=== PATIENT | female | born 1990 | race Caucasian/White ===

== ENCOUNTER 2021-02-12 17:41 | Emergency (ER) | payer MEDICAID ==
[~2021-02-12] VITALS: Ht 160 cm; Wt 75.0 kg
[2021-02-12] MEDS ORDERED: diphenhydrAMINE 50 mg/ml inj IM ONE ×2 (17:45→19:50)
[2021-02-12] MEDS ORDERED: haloperidol lactate 5mg/ml inj IM ONE ×2 (17:45→19:50)
[2021-02-12] MEDS ORDERED: LORazepam 2 mg/ml vial IM ONE ×2 (17:45→19:50)
[2021-02-12] MEDS ORDERED: normal saline 1000ML IV soln IVB ONE (17:50)
[2021-02-12 18:26] LABS: BASOPHILS # (AUTO) 0.1 X10'3 (0-0.2); BASOPHILS % (AUTO) 0.5 % (0-1); EOSINOPHILS # (AUTO) 0.1 X10'3 (0-0.9); EOSINOPHILS % (AUTO) 0.8 % (0-6); HEMATOCRIT 36.1 % (35.0-45.0); HEMOGLOBIN 12.5 g/dl (12.0-16.0); LYMPHOCYTES # (AUTO) 2.6 X10'3 (1.1-4.8); LYMPHOCYTES % (AUTO) 23.1 % (21-51); MEAN CORPUSCULAR HEMOGLOBIN 30.6 PG (27.0-31.0); MEAN CORPUSCULAR HGB CONC 34.5 g/dL (33.0-36.5); MEAN CORPUSCULAR VOLUME 88.8 FL (78-98); MEAN PLATELET VOLUME 7.6 FL (7.4-10.4); MONOCYTES # (AUTO) 1.4 X10'3 (0-0.9); MONOCYTES % (AUTO) 12.4 % (2-12); NEUTROPHILS # (AUTO) 7.1 X10'3 (1.8-7.7); NEUTROPHILS % (AUTO) 63.2 % (42-75); PLATELET COUNT 305 X10'3 (140-440); RED BLOOD COUNT 4.07 X10'6 (4.20-5.60); RED CELL DISTRIBUTION WIDTH 13.8 % (11.5-14.5); WHITE BLOOD COUNT 11.2 X10'3 (4.5-11.0)
--- NOTE | 2021-02-12 19:00 | NUR ---
Patient's wet socks changed out to hospital socks. Patient talking under her breath speaking to the space beside her stating "how would you like to cum to this fucking face". When asked if she takes any medication she stated "I don't take anything that is good for me". Continues to be evasive and uncooperative with any information.
--- NOTE | 2021-02-12 19:20 | NUR ---
Patient began yelling- pulled one of her hands loose, aggressive and tensing on her other restraints. Remains uncooperative. Wet pants changed into dry green scrubs with assistance from staff. ED provider made aware as patient has still been unable to go to CT.
[2021-02-12 19:41] LABS: URINE HCG NEGATIVE (NEG)
[2021-02-12 19:42] LABS: CLARITY,URINE CLEAR (Clear); COLOR,URINE YELLOW (Yellow); GLUCOSE, URINE NEGATIVE (Neg); KETONES,URINE NEGATIVE (Neg); LEUKOCYTE ESTERASE ,URINE NEGATIVE (Neg); NITRITES, URINE NEGATIVE (Neg); OCCULT BLOOD,URINE NEGATIVE (Neg); PH,URINE 5.5 (4.8-8.0); PROTEIN,URINE 100 mg/dl (Neg); UROBILINOGEN,URINE 0.2 E.U/dL (0.2-1.0)
[2021-02-12 19:46] LABS: UA COLLECTION TYPE STRAIGHT CATH
[2021-02-12 19:47] LABS: BACTERIA,URINE NONE SEEN /HPF (Neg); MUCUS STRANDS FEW /LPF (Neg); RBC,URINE 0-2 /HPF (0-2); SQUAMOUS EPITHELIAL CELL,UR FEW /LPF (FEW); WBC,URINE 0-4 /HPF (0-4)
[2021-02-12 19:54] LABS: ALANINE AMINOTRANSFERASE 42 U/L (12-78); ALBUMIN 3.9 G/DL (3.4-5.0); ALBUMIN/GLOBULIN RATIO 1.4 (1.1-1.5); ALKALINE PHOSPHATASE 68 IU/L (46-116); ANION GAP 13 (8-16); ASPARTATE AMINO TRANSFERASE 108 U/L (10-37); BILIRUBIN,TOTAL 0.6 MG/DL (0.1-1.0); BLOOD UREA NITROGEN 18 MG/DL (7-18); BUN/CREATININE RATIO 17.8 (6.6-38.0); CALCIUM 7.7 MG/DL (8.5-10.1); CHLORIDE 108 MMOL/L (99-107); CREATININE 1.01 MG/DL (0.40-0.90); GLUCOSE 85 MG/DL (70-104); POTASSIUM 3.9 MMOL/L (3.5-5.1); SODIUM 143 MMOL/L (135-145); TOTAL CARBON DIOXIDE 21.9 MMOL/L (24-32); TOTAL PROTEIN 6.7 G/DL (6.4-8.2); eGFR 64 ML/MIN
--- NOTE | 2021-02-12 20:10 | NUR ---
Patient escorted to CT with security. Patient at this time cooperative and calm. Warm blankets provided per request. Restraints removed for CT and patient tolerated well. Snacks provided and patient was able to feed herself.
[2021-02-12 20:15] LABS: URINE AMPHETAMINE SCREEN POSITIVE (Neg); URINE BARBITUATE SCREEN NEGATIVE (Neg); URINE BENZODIAZEPINES SCREEN NEGATIVE (Neg); URINE CANNABINOID SCREEN NEGATIVE (Neg); URINE COCAINE SCREEN NEGATIVE (Neg); URINE METHADONE SCREEN NEGATIVE (Neg); URINE OPIATE SCREEN NEGATIVE (Neg); URINE PHENCYCLIDINE SCREEN NEGATIVE (Neg)
[2021-02-12 20:27] LABS: ETHANOL < 0.010 GM/DL (0.0-0.010)
[2021-02-12 20:28] LABS: CKMB RELATIVE INDEX 0.4 RATIO (0-2.5); CREATINE KINASE 3559 U/L (26-192)
[2021-02-12] MEDS ORDERED: NO HOME MEDS (20:54)
[2021-02-12] MEDS ORDERED: temazepam 15mg capsule PO PRN (21:00)
[2021-02-12] MEDS ORDERED: magnesium hydroxide 30ml (MOM) UD suspension PO PRN (22:30)
[2021-02-12] MEDS ORDERED: acetaminophen 650mg rectal suppository RC PRN (22:30)
[2021-02-12] MEDS ORDERED: LORazepam 2 mg/ml vial IV PRN (22:30)
[2021-02-12] MEDS ORDERED: ondansetron/PF 4mg/2ml inj IV PRN (22:30)
[2021-02-12] MEDS ORDERED: diphenhydrAMINE 25mg capsule PO PRN (22:30)
[2021-02-12] MEDS ORDERED: diphenhydrAMINE 50 mg/ml inj IV PRN (22:30)
[2021-02-12] MEDS ORDERED: morphine 2 MG/ML inj. syringe IV PRN ×2 (22:30)
[2021-02-12] MEDS ORDERED: haloperidol lactate 5mg/ml inj IM PRN (22:30)
[2021-02-12] MEDS ORDERED: dextrose 50%-water 50ml dispensing syringe IV PRN (22:30)
[2021-02-12] MEDS ORDERED: ondansetron 4mg rapidly disintigrating tab PO PRN (22:30)
[2021-02-12] MEDS ORDERED: HYDROcodone/acetaminophen 5mg/325mg tablet PO PRN (22:30)
[2021-02-12] MEDS ORDERED: HYDROmorphone inj. 0.5 MG/0.5 ML DISP.SYRIN IV PRN (22:30)
[2021-02-12] MEDS ORDERED: haloperidol 5mg tablet PO PRN (22:30)
[2021-02-12] MEDS ORDERED: mag hydrox/Alum hydrox/simeth 30ml oral suspension PO PRN (22:30)
[2021-02-12] MEDS ORDERED: acetaminophen 325mg tablet PO PRN ×2 (22:30)
[2021-02-12] MEDS ORDERED: bisacodyl 10mg suppository rectal RC PRN (22:30)
[2021-02-12] MEDS ORDERED: HYDROcodone/acetaminophen 10/325mg tab PO PRN (22:30)
[2021-02-12] MEDS ORDERED: normal saline 1000ml 1,000 ML IV SCH (22:30)
[2021-02-12 22:56] LABS: PARTIAL THROMBOPLASTIN TIME 28 SECONDS (22-32)
[2021-02-12 23:03] LABS: HEMOGLOBIN A1C 4.6 % (4.5-6.2)
[2021-02-12 23:11] LABS: MAGNESIUM 2.1 MG/DL (1.5-2.4); PHOSPHORUS 3.4 MG/DL (2.3-4.5); TROPONIN I < 0.04 NG/ML (0.0-0.05)
[2021-02-13] MEDS: sodium bicarbonate (8.4%) inj. 100 MEQ in dextrose 5%-water 1,000 ML IV SCH ×2 (00:29→09:40)
--- NOTE | 2021-02-13 01:05 | NUR ---
Patient resting in stretcher, even and unlabored respirations, eyes closed, appears to be asleep at this time. IV fluids infusing.
[2021-02-13 02:49] LABS: BASOPHILS % (AUTO) 0.6 % (0-1); EOSINOPHILS # (AUTO) 0.1 X10'3 (0-0.9); EOSINOPHILS % (AUTO) 1.9 % (0-6); HEMATOCRIT 31.9 % (35.0-45.0); HEMOGLOBIN 10.7 g/dl (12.0-16.0); LYMPHOCYTES # (AUTO) 2.8 X10'3 (1.1-4.8); LYMPHOCYTES % (AUTO) 35.9 % (21-51); MEAN CORPUSCULAR HEMOGLOBIN 30.5 PG (27.0-31.0); MEAN CORPUSCULAR HGB CONC 33.6 g/dL (33.0-36.5); MEAN CORPUSCULAR VOLUME 90.8 FL (78-98); MEAN PLATELET VOLUME 7.4 FL (7.4-10.4); MONOCYTES # (AUTO) 0.8 X10'3 (0-0.9); NEUTROPHILS % (AUTO) 51.6 % (42-75); PLATELET COUNT 238 X10'3 (140-440); RED BLOOD COUNT 3.52 X10'6 (4.20-5.60); RED CELL DISTRIBUTION WIDTH 13.3 % (11.5-14.5); WHITE BLOOD COUNT 7.7 X10'3 (4.5-11.0)
[2021-02-13 03:24] LABS: ALANINE AMINOTRANSFERASE 40 U/L (12-78); ALBUMIN 3.4 G/DL (3.4-5.0); ALBUMIN/GLOBULIN RATIO 1.2 (1.1-1.5); ALKALINE PHOSPHATASE 64 IU/L (46-116); ANION GAP 9 (8-16); ASPARTATE AMINO TRANSFERASE 93 U/L (10-37); BILIRUBIN,TOTAL 0.8 MG/DL (0.1-1.0); BLOOD UREA NITROGEN 13 MG/DL (7-18); BUN/CREATININE RATIO 16.9 (6.6-38.0); CALCIUM 7.5 MG/DL (8.5-10.1); CHLORIDE 109 MMOL/L (99-107); CHOL/HDL RATIO 1.9 (0.00-4.99); CHOLESTEROL 120 MG/DL (0-200); CREATININE 0.77 MG/DL (0.40-0.90); GLUCOSE 86 MG/DL (70-104); HDL CHOLESTEROL 63 MG/DL (35-60); LDL CHOLESTEROL 43 MG/DL (50-100); POTASSIUM 3.5 MMOL/L (3.5-5.1); SODIUM 142 MMOL/L (135-145); TOTAL CARBON DIOXIDE 24.4 MMOL/L (24-32); TOTAL PROTEIN 6.3 G/DL (6.4-8.2); TRIGLYCERIDES 32 MG/DL (20-135); eGFR 87 ML/MIN
[2021-02-13] MEDS ORDERED: pantoprazole 40mg Tablet.DR PO SCH (07:30)
--- NOTE | 2021-02-13 07:52 | NUR ---
pt calm, quiet ,cooperative and relaxed.pt medicated with am meds ,taken without difficulity,pt bp is better after pt ia awake.
[2021-02-13] MEDS ORDERED: folic acid 1mg tablet PO SCH (08:00)
[2021-02-13] MEDS ORDERED: folic acid inj. 2 MG, thiamine inj. 100 MG, MVI, adult No.4 with vit. K 10 ML in dextro... IV SCH ×4 (08:00)
[2021-02-13] MEDS ORDERED: multivitamins, therapeutics tablet PO SCH (08:00)
[2021-02-13] MEDS ORDERED: docusate sod 100mg capsule PO SCH (08:00)
[2021-02-13] MEDS ORDERED: thiamine 100mg tablet PO SCH (08:00)
[2021-02-13] MEDS ORDERED: heparin, porcine 5000 units/ml vial SQ SCH (08:00)
[2021-02-13 09:02] LABS: CREATINE KINASE 3024 U/L (26-192)
[2021-02-13 09:14] VITALS: BP 104/77
--- NOTE | 2021-02-13 09:56 | NUR ---
spoke to dr estrada regarding pt co2 level which is 24.4 and as per protocol d/c the bicar drip onces bicar is above 24.as per md d/c bicarb drip and order normal saline 200 ml/hr.
[2021-02-13] MEDS ORDERED: normal saline 1000ml 1,000 ML IV SCH (10:00)
--- NOTE | 2021-02-13 10:45 | NUR ---
first contact with pt, pt is sleeping, resp even and unlabored, skin p/w/d, pt woke up easily, pt is GCS 15, alert and oriented to person, place and time. Pt stated she wanted to go, I explain why she was being admitted for rhabdomyolosis, pt stills wants to leave, I again explained the risk of leaving up and including , pt signed AMA paperwork and amb with steady gait outside, she also removed the monitor and IV while I was talking with Dr. Ramírez. Dr Ramírez is aware pt is leaving AMA. Pt is wearing [facility] gown, hospital socks and camoflague shorts
--- NOTE | 2021-02-13 11:05 | NUR ---
charge nurse, Rosa Maria, and house supNadeen aware pt left AMA. Contacted [facility] to report pt left AMA, security aware also.
[2021-02-14] MEDS ORDERED: LORazepam 1 MG tablet PO PRN (22:30)
[2021-02-14] MEDS ORDERED: LORazepam 2 mg/ml vial IV PRN (22:30)
[2021-02-16] MEDS ORDERED: LORazepam 2 mg/ml vial IV PRN (22:30)
[2021-02-16] MEDS ORDERED: LORazepam 1 MG tablet PO PRN (22:30)
== END 2021-02-13 11:05 | disposition left against medical advice (07) ==
LOC: ER 17:42 → UNDOADMIN 22:29 → ED HOLD 22:29 → UNDOADMIN 22:37 → ED HOLD 22:37 → UNDODISIN 02-13 11:46
DX: F29 Unspecified psychosis not due to a substance or known physiological condition (principal); E86.0 Dehydration
CPT/HCPCS: 36415; 70450; 71045; 80053; 80061; 80305; 80320; 81001; 81025; 82140; 82550; 82553; 83036; 83735; 83880; 84100; 84443; 84484; 85025; 85610; 85730; 96360; 96361; 96372; 99285; J1200; J1630; J2060; J7030; G0378